=== PATIENT | male | born 1950 | race Caucasian/White ===

== ENCOUNTER 2022-05-27 03:21 | Inpatient (IN) | payer MEDICARE ==
[~2022-05-27] VITALS: Ht 162.6 cm; Wt 71.2 kg
--- NOTE | 2022-05-27 01:25 | NUR ---
RN NOTES RECEIVED DIRECT ADMISSION REPORT FROM [facility] KIEL CARMONA. ALL PERTINENT ADMISSION INFO REGARDING PT NOTED. WILL WAIT FOR PT TO BE TRANSFERRED TO UNIT AND ADDRESS NEEDS ACCORDINGLY. LINING FINISHER MADE AWARE.
--- NOTE | 2022-05-27 03:35 | NUR ---
RN NOTES RECEIVED PT FROM [facility] VIA [facility] ACCOMPANIED BY 2 EMT STAFF AND TRANSFERRED TO BED VIA 2 PERSON ASSIST. PT IS A/OX4; ON ROOM AIR WITH RESPIRATIONS EVEN AND UNLABORED. COMPREHENSIVE PHYSICAL ASSESSMENT AND PATIENT CARE DONE. CALL LIGHT WITHIN REACH, SAFETY MEASURES AND ISOLATION PRECAUTION IN PLACE, WILL CONTINUE MONITOR AND ASSESS THROUGHOUT THE SHIFT. WILL CARRY OUT MD ORDERS ACCORDINGLY. ACADEMIC INTERN MADE AWARE.
[2022-05-27 04:00] VITALS: BP 147/86
--- NOTE | 2022-05-27 06:05 | NUR ---
RN NOTES ACCU CHECK DONE : 152MG/DL; NOTIFIED ONCALL (JENNIFER,WINDING MACHINE OPERATOR) NO ISS ORDERED. ACKNOLWEDGED. SECURED ORDER FOR MILD ISS. WILL CARRY OUT ORDER. COKE CRUSHER OPERATOR MADE AWARE
[2022-05-27] MEDS: BLOOD SUGAR DIAGNOSTIC 1 EACH STRIP IN SCH ×6 (06:11→21:45)
[2022-05-27] MEDS ORDERED: DEXTROSE 50%-WATER 50 ML DISP.SYRIN IV PRN (06:30)
[2022-05-27 06:49] LABS: BASOPHILS % (AUTO) 0.4 % (0.0-2.0); EOSINOPHILS % (AUTO) 2.4 % (0.0-6.0); HEMATOCRIT 43 % (39-51); HEMOGLOBIN 14.7 g/dL (13.5-17.5); LYMPHOCYTES # (AUTO) 2.4 K/uL (0.8-4.8); LYMPHOCYTES % (AUTO) 25.5 % (20.0-44.0); MEAN CORPUSCULAR HGB CONC 34 g/dl (31.0-36.0); MEAN CORPUSCULAR VOLUME 89 fL (80-96); MONOCYTES # (AUTO) 0.9 K/uL (0.1-1.30); MONOCYTES % (AUTO) 9.8 % (2.0-12.0); NEUTROPHILS # (AUTO) 5.7 K/uL (1.8-8.9); NEUTROPHILS % (AUTO) 61.9 % (43.0-81.0); PLATELET COUNT (AUTO) 257 K/uL (150-450); RED BLOOD CELL COUNT(AUTO) 4.81 MIL/uL (4.5-6.0); WHITE BLOOD COUNT (AUTO) 9.2 K/uL (4.3-11.0)
--- NOTE | 2022-05-27 06:51 | NUR ---
RN CLOSING NOTE: PATIENT REMAINS IN ROOM IN NO SIGNS OF RESPIRATORY DISTRESS, PATIENT STILL ON ROOM AIR; TOLERATING WELL SATURATING @ >95% SP02. STILL WITH R SIDED WEAKNESS. WILL HAVE MRI TODAY; CHECK LIST SECURED AND PLACED IN THE CHART. SAFETY MEASURES IMPLEMENTED, BED IN LOWEST POSITION, LOCKED, SIDE RAILS UP, CALL LIGHT WITHIN REACH. ALL NEEDS AND ORDERS ADDRESSED DURING THE SHIFT. IV ACCESS MAINTAINED INTACT, SECURED AND FLUSHING WELL. PATIENT KEPT CLEAN AND COMFORTABLE WITHIN THE SHIFT. PATIENT ENDORSED TO INCOMING SHIFT RN WITH STABLE VITAL SIGN AND FOR CONTINUITY OF CARE.
[2022-05-27] MEDS: INSULIN REGULAR, HUMAN 100 UNIT/ML 3 ML VIAL SQ PRN ×5 (06:59→21:46)
--- NOTE | 2022-05-27 07:24 | NUR ---
RN OPENING NOTE: PATIENT IN ROOM IN NO SIGNS OF RESPIRATORY DISTRESS, PATIENT STILL ON ROOM AIR; TOLERATING WELL SATURATING @ >95% SP02. STILL WITH R SIDED WEAKNESS. WILL HAVE MRI TODAY; . SAFETY MEASURES IMPLEMENTED, BED IN LOWEST POSITION, LOCKED, SIDE RAILS UP, CALL LIGHT WITHIN REACH. ALL NEEDS AND ORDERS ADDRESSED DURING THE SHIFT. IV ACCESS MAINTAINED INTACT, SECURED AND FLUSHING WELL.
[2022-05-27 07:27] LABS: ALANINE AMINOTRANSFERASE 25 U/L (12-78); ALBUMIN 3.6 g/dL (3.4-5.0); ALKALINE PHOSPHATASE 68 U/L (46-116); ASPARTATE AMINOTRANSFERASE 18 U/L (15-37); BILIRUBIN,TOTAL 0.9 mg/dL (0.2-1.0); CALCIUM, SERUM 8.9 mg/dL (8.5-10.1); CARBON DIOXIDE 22 mmol/L (21-32); CHLORIDE 101 mmol/L (98-107); CREATININE 1.2 mg/dL (0.6-1.3); GLUCOSE 182 mg/dL (74-106); POTASSIUM 3.9 mmol/L (3.5-5.1); SODIUM SERUM 134 mmol/L (136-145); TOTAL PROTEIN, SERUM 7.4 g/dL (6.4-8.2); UREA NITROGEN, BLOOD 23 mg/dL (7-18)
[2022-05-27 07:32] LABS: CHOLESTEROL 84 mg/dL (<200); HDL CHOLESTEROL 38 mg/dL (40-60); LDL 38 mg/dL (0-99); THYROID STIMULATING HORMONE 1.477 uIU/mL (0.358-3.74); TRIGLYCERIDES 85 mg/dL (30-150)
[2022-05-27 08:00] VITALS: BP 178/84
[2022-05-27] MEDS: LOSARTAN POTASSIUM 50 MG TABLET PO SCH (08:03)
[2022-05-27] MEDS: PANTOPRAZOLE 40 MG TABLET.DR PO SCH (08:03)
[2022-05-27] MEDS: CLOPIDOGREL BISULFATE 75 MG TABLET PO SCH (08:03)
[2022-05-27] MEDS: ENOXAPARIN SODIUM 40 MG/0.4 ML DISP.SYRIN SQ SCH (08:04)
[2022-05-27] MEDS ORDERED: OMEP20CA15 PO (08:11)
[2022-05-27] MEDS ORDERED: TAMS-12 PO (08:11)
[2022-05-27] MEDS ORDERED: METF-441 PO (08:11)
[2022-05-27] MEDS ORDERED: LOSA100T31 PO (08:11)
--- NOTE | 2022-05-27 08:39 | NUR ---
RN NOTE PER ACCU CHECK PARAMETERS, PROVIDER IS TO BE NOTIFIED IF BLOOD SUGAR IS >150 MORNING BS WAS 172 INFORMED PROVIDER PATIENT HAS A SLIDING SCALE OF 3 UNITS OF INSULIN. INSULIN ADMINISTERED NO FURTHER ORDERS
[2022-05-27] MEDS ORDERED: METFORMIN XR 500 MG TAB.SR.24H PO SCH (09:00)
[2022-05-27] MEDS ORDERED: CLOPIDOGREL BISULFATE 75 MG TABLET PO SCH (09:00)
[2022-05-27 12:00] VITALS: BP 162/81
[2022-05-27 14:00] VITALS: BP 188/88
[2022-05-27 16:00] VITALS: BP 188/88
[2022-05-27] MEDS: METFORMIN 850 MG TABLET PO SCH (16:42)
[2022-05-27] MEDS: hydrALAZINE HCL IV 20 MG VIAL IV PRN (16:42)
--- NOTE | 2022-05-27 19:10 | NUR ---
RN CLOSING NOTE: PATIENT REMAINS IN ROOM IN NO SIGNS OF RESPIRATORY DISTRESS, PATIENT STILL ON ROOM AIR; TOLERATING WELL SATURATING @ >95% SP02. STILL WITH R SIDED WEAKNESS. WILL HAVE MRI TODAY; CHECK LIST SECURED AND PLACED IN THE CHART. SAFETY MEASURES IMPLEMENTED, BED IN LOWEST POSITION, LOCKED, SIDE RAILS UP, CALL LIGHT WITHIN REACH. ALL NEEDS AND ORDERS ADDRESSED DURING THE SHIFT. IV ACCESS MAINTAINED INTACT, SECURED AND FLUSHING WELL. PATIENT KEPT CLEAN AND COMFORTABLE WITHIN THE SHIFT. PATIENT ENDORSED TO INCOMING SHIFT RN.
--- NOTE | 2022-05-27 19:26 | NUR ---
RN NOTE RECEIVED MRI RESULTS INDICATION ACUTE KS INFORMED DR. DEWEY PER PROVIDER ORDER ASPIRIN 81MG PO ONCE A DAY, PLAVIX 75MG PO ONCE A DAY, ORDER CAROTID DUPLEX, ECHOCARDIOGRAM, AND PT EVAL ORDERS PLACED.
--- NOTE | 2022-05-27 19:34 | NUR ---
RN NOTES RECEIVED PT FOR CONTINUITY OF CARE. PATIENT A/OX4; SYRIAC SPEAKING IN NO S/SX OF ACUTE DISTRESS AT THIS TIME; CURRENTLY ON ROOM AIR; WITH 02 SAT >95% AT THIS TIME. AT BEDSIDE. WITH IV ACCESS PATENT, INTACT AND FLUSHING WELL. . STILL WITH NOTED RIGHT SIDED WEAKNESS, NO COMPLAINTS OF PAIN AND DISCOMFORT AT THIS TIME. CALL LIGHT WITHIN REACH OF THE PATIENT. WILL CONTINUE TO MONITOR AND REASSESS FOR ANY CHANGES AND WILL CARRY OUT ANY ONGOING AND ACTIVE MD ORDER.
[2022-05-27] MEDS: ATORVASTATIN 40 MG TABLET PO SCH (21:31)
[2022-05-27] MEDS: TAMSULOSIN 0.4 MG CAP.SR.24H PO SCH (21:31)
[2022-05-27] MEDS: LINAGLIPTIN 5 MG TABLET PO SCH (21:31)
[2022-05-27 22:00] VITALS: BP 163/81
[2022-05-27] MEDS ORDERED: SIMVASTATIN 40 MG TABLET PO SCH (22:00)
[2022-05-28] VITALS (7 sets, daily range): BP systolic 130–191; BP diastolic 68–85
--- NOTE | 2022-05-28 04:00 | NUR ---
RN NOTES PATIENT REMAINED TO BE IN NO SIGNS OF ACUTE RESPIRATORY DISTRESS , SAFE ENVIRONMENT MAINTAINED FOR PT. AM PATIENT CARE RENDERED. WILL CONTINUE TO MONITOR AND REASSESS FOR ANY CHANGES THROUGHOUT THE SHIFT.
[2022-05-28 06:38] LABS: BASOPHILS % (AUTO) 0.3 % (0.0-2.0); EOSINOPHILS % (AUTO) 1.7 % (0.0-6.0); HEMATOCRIT 42 % (39-51); HEMOGLOBIN 14.2 g/dL (13.5-17.5); LYMPHOCYTES # (AUTO) 2.1 K/uL (0.8-4.8); LYMPHOCYTES % (AUTO) 20.2 % (20.0-44.0); MEAN CORPUSCULAR HGB CONC 34 g/dl (31.0-36.0); MEAN CORPUSCULAR VOLUME 90 fL (80-96); MONOCYTES # (AUTO) 0.9 K/uL (0.1-1.30); NEUTROPHILS # (AUTO) 7.1 K/uL (1.8-8.9); NEUTROPHILS % (AUTO) 68.8 % (43.0-81.0); PLATELET COUNT (AUTO) 251 K/uL (150-450); RED BLOOD CELL COUNT(AUTO) 4.62 MIL/uL (4.5-6.0); WHITE BLOOD COUNT (AUTO) 10.3 K/uL (4.3-11.0)
--- NOTE | 2022-05-28 06:55 | NUR ---
RN CLOSING NOTE: PATIENT REMAINS IN ROOM IN NO SIGNS OF RESPIRATORY DISTRESS, PATIENT STILL ON ROOM AIR; TOLERATING WELL SATURATING @ >95% SP02. STILL WITH R SIDED WEAKNESS. SCHEDULED FOR ECHO AND CAROTID DUPLEX IMAGING TODAY. SAFETY MEASURES IMPLEMENTED, BED IN LOWEST POSITION, LOCKED, SIDE RAILS UP, CALL LIGHT WITHIN REACH. ALL NEEDS AND ORDERS ADDRESSED DURING THE SHIFT. IV ACCESS MAINTAINED INTACT, SECURED AND FLUSHING WELL. PATIENT KEPT CLEAN AND COMFORTABLE WITHIN THE SHIFT. PATIENT ENDORSED TO INCOMING SHIFT RN WITH STABLE VITAL SIGN AND FOR CONTINUITY OF CARE.
--- NOTE | 2022-05-28 07:00 | NUR ---
RN NOTE RECEIVED PATIENT IN BED RESTING ALERT ORIENTED X4 VERBALLY RESPONSIVE ON ROOM AIR O2:99% IV SITE IS ON LEFT AC INTACT PATENT RIGHT SIDE WEAKNESS,NEURO CHECK EVERY 4 HOURS,CONTIENT BOWEL/BLADDER,SAFETY MEASURE IMPLEMENT BED IN LOW POSITION AND LOCKED,CALL LIGHT WITHIN REACH,HEAD OF THE BED ELEVATED,CONTINUE TO MONITOR.
[2022-05-28 07:23] LABS: CALCIUM, SERUM 8.7 mg/dL (8.5-10.1); CREATININE 1.2 mg/dL (0.6-1.3); POTASSIUM 3.9 mmol/L (3.5-5.1)
[2022-05-28] MEDS: BLOOD SUGAR DIAGNOSTIC 1 EACH STRIP IN SCH ×4 (07:33→22:14)
[2022-05-28] MEDS: PANTOPRAZOLE 40 MG TABLET.DR PO SCH (07:40)
[2022-05-28] MEDS: INSULIN REGULAR, HUMAN 100 UNIT/ML 3 ML VIAL SQ PRN ×4 (07:54→22:16)
[2022-05-28] MEDS ORDERED: CLOPIDOGREL BISULFATE 75 MG TABLET PO SCH (09:00)
[2022-05-28] MEDS: METFORMIN 850 MG TABLET PO SCH ×2 (09:21→16:55)
[2022-05-28] MEDS: LINAGLIPTIN 5 MG TABLET PO SCH ×5 (09:21→22:43)
[2022-05-28] MEDS: ASPIRIN 81 MG TAB.CHEW PO SCH (09:21)
[2022-05-28] MEDS: CLOPIDOGREL BISULFATE 75 MG TABLET PO SCH (09:21)
[2022-05-28] MEDS: LOSARTAN POTASSIUM 50 MG TABLET PO SCH (09:22)
[2022-05-28] MEDS: ENOXAPARIN SODIUM 40 MG/0.4 ML DISP.SYRIN SQ SCH (09:23)
[2022-05-28] MEDS: HYDROCODONE/APAP 5/325MG TABLET PO PRN ×2 (14:55→22:18)
[2022-05-28] MEDS ORDERED: IOHEXOL-350 100 ML VIAL IV ONE (15:37)
[2022-05-28] MEDS ORDERED: IV NS 0.9% 250 ML IV ONE (15:37)
[2022-05-28] MEDS: PIPERACILLIN /TAZOBACTAM 3.375 G in IV D5W 100 ML IV SCH ×2 (15:48→21:26)
--- NOTE | 2022-05-28 16:30 | NUR ---
RN NOTE PATIENT CT A ON BRAIN DONE,CONTINUE TO MONITOR.
[2022-05-28] MEDS ORDERED: PIPERACILLIN /TAZOBACTAM 4.5 G in IV D5W 50 ML IV SCH (18:00)
--- NOTE | 2022-05-28 18:29 | NUR ---
RN NOTE PATIENT REMAINS ON ALERT ORIENTED X4 VERBALLY RESPONSIVE NO SOB NOT ACUTE DISTRESS NOTED,ALL DUE MEDS GIVEN MD ORDERED,ALL NEEDS MET KEPT CALL LIGHT WITHIN REACH ENDORSE NEXT COMING SHIFT FOR CONTINUATION OF CARE.
--- NOTE | 2022-05-28 19:15 | NUR ---
RN OPENING NOTE PATIENT IN BED, AWAKE. PATIENT'S FAMILY AT BEDSIDE. PATIENT IS ABLE TO MAKE NEEDS KNOWN. A/O X 4. PATIENT ON TELE MONITOR READING SR 61 BPM. R SIDED WEAKNESS NOTED. PATIENT HAS A LAC 20 G, SALINE LOCKED AT THIS TIME, FLUSHING WELL. SAFETY MEASURES IN PLACE: BED LOCKED AND IN LOWEST POSITION, CALL LIGHT WITHIN REACH, SIDE RAILS UP. WILL MONITOR PATIENT CLOSELY.
[2022-05-28] MEDS: TAMSULOSIN 0.4 MG CAP.SR.24H PO SCH (21:27)
[2022-05-28] MEDS: hydrALAZINE HCL IV 20 MG VIAL IV PRN (21:27)
[2022-05-28] MEDS: ATORVASTATIN 40 MG TABLET PO SCH (21:27)
--- NOTE | 2022-05-28 21:30 | NUR ---
RN NOTE PATIENT 'S BP 191/83, GIVEN APRESOLINE 20 MG IV. WILL MONITOR PATIENT'S BP
--- NOTE | 2022-05-28 22:20 | NUR ---
PATIENT COMPLAINED OF PAIN ON THE RIGHT SIDE OF HIS HEAD/TEMPORAL AREA. NORCO 5-325 GIVEN TO MANAGE THE PAIN. WILL REASSESS MED EFFECTIVENESS AT A LATER TIME.
--- NOTE | 2022-05-28 22:30 | NUR ---
BS 177 MG/DL, MD NOTIFIED PER ORDER. NO NEW ORDERS FROM MD. 3 UNITS REGULAR INSULIN GIVEN FOR COVERAGE.
[2022-05-29] VITALS: BP 135/72
[2022-05-29 04:00] VITALS: BP 157/74
[2022-05-29] MEDS: PIPERACILLIN /TAZOBACTAM 3.375 G in IV D5W 100 ML IV SCH ×2 (05:59→12:08)
--- NOTE | 2022-05-29 07:02 | NUR ---
RN CLOSING NOTE PATIENT IN BED, EYES CLOSED. PATIENT EASILY AWAKENED. NO CHANGES IN NEURO STATUS. PATIENT NOT IN ANY APPARENT DISTRESS. MANAGED BP AND PAIN APPROPRIATELY. ALL NEEDS MET AND ATTENDED. ALL ORDERS CARRIED OUT. SAFETY MEASURES IMPLEMENTED. WILL ENDORSE TO DAY SHIFT NURSE FOR JESSICA.
--- NOTE | 2022-05-29 07:30 | NUR ---
RN OPENING NOTE PT OBSERVED RESTING IN BED ON RA TOLERATING WELL WITH NO SIGNS OF LABORED BREATHING OR DISTRESS O2 SAT 97%. PT IS A/OX4 SPEAKS [place] AND [place] NEURO STATUS INTACT AT THIS TIME. PT IS ON BR AND USES URINAL. IV ACCESS L AC 20G. BED IS LOCKED IN LOWEST POSITION X2 BED RAILS UP AND ALL HOSPITAL SAFETY MEASURES WILL CONTINUE TO MONITOR.
[2022-05-29 08:00] VITALS: BP 163/77
[2022-05-29] MEDS: BLOOD SUGAR DIAGNOSTIC 1 EACH STRIP IN SCH ×2 (08:12→12:08)
[2022-05-29] MEDS: CLOPIDOGREL BISULFATE 75 MG TABLET PO SCH (08:17)
[2022-05-29] MEDS: LINAGLIPTIN 5 MG TABLET PO SCH ×2 (08:17→12:30)
[2022-05-29] MEDS: ASPIRIN 81 MG TAB.CHEW PO SCH (08:17)
[2022-05-29] MEDS: PANTOPRAZOLE 40 MG TABLET.DR PO SCH (08:18)
[2022-05-29] MEDS: ENOXAPARIN SODIUM 40 MG/0.4 ML DISP.SYRIN SQ SCH (08:34)
[2022-05-29] MEDS: INSULIN REGULAR, HUMAN 100 UNIT/ML 3 ML VIAL SQ PRN ×2 (08:49→12:24)
[2022-05-29] MEDS: METFORMIN 850 MG TABLET PO SCH ×2 (08:51→12:28)
--- NOTE | 2022-05-29 08:51 | NUR ---
RN NOTE: METFORMIN MORNING DOSE HELD DUE TO HAVING CTA WITH CONTRAST YESTERDAY.
[2022-05-29] MEDS: LOSARTAN POTASSIUM 50 MG TABLET PO SCH (09:00)
[2022-05-29 12:00] VITALS: BP 138/70
[2022-05-29] MEDS: HYDROCODONE/APAP 5/325MG TABLET PO PRN (12:28)
[2022-05-29] MEDS ORDERED: IOHEXOL-350 100 ML VIAL IV ONE (12:35)
[2022-05-29] MEDS ORDERED: IV NS 0.9% 250 ML IV ONE (12:35)
--- NOTE | 2022-05-29 16:32 | NUR ---
RN NOTE: REPORT CALLED NATHAN SEBASTIAN AND GAVE REPORT TO IKEL MARTINEZ. ENDORSED TO JUAN PT HAD HEAD CTA 05/28/22 AND CTA CAROTID TODAY 05/29/22. ALSO ENDORSED ACCUCHECK PARAMETERS AND PERMISSIVE HTN PARAMETERS DUE TO CVA.
--- NOTE | 2022-05-29 17:00 | NUR ---
RN NOTE: DISCHARGE PT DC'D TO [facility] IN STABLE CONDITION AT THIS TIME. DC INSTRUCTIONS GIVEN AND EXPLAINED TO PT, , AND AMBULANCE CREW. PT VERBALIZED UNDERSTANDING "I UNDERSTAND." ALL PAPERWORKS SIGNED AND COMPLETED. ALL BELONGINGS SENT WITH PT: PANTS AND CELLPHONE. L UA AC 20G INTACT, FLUSHED, AND PATENT. NO COMPLICATIONS NOTED. PT TO BE PLACED IN ROOM 4421/B; REPORT GIVEN TO KIEL MARTINEZ. RECEIVING DR IS DR. CHIRAG GUERRA. PT ENDORSED TO AMBULANCE CREW: IVON.
--- NOTE | 2022-05-30 12:30 | NUR ---
SS consult requested for CODE STROKE over the weekend. Pt. was already discharged.
== END 2022-05-29 17:41 | DRG 65 ==
LOC: TELE1 03:21
DX: I63.9 Cerebral infarction, unspecified (principal); D68.69 Other thrombophilia; I10 Essential (primary) hypertension; E78.5 Hyperlipidemia, unspecified; E11.9 Type 2 diabetes mellitus without complications; E66.9 Obesity, unspecified; N40.0 Benign prostatic hyperplasia without lower urinary tract symptoms; Z68.26 Body mass index [BMI] 26.0-26.9, adult; K11.20 Sialoadenitis, unspecified; Z86.73 Personal history of transient ischemic attack (TIA), and cerebral infarction without residual deficits; I67.2 Cerebral atherosclerosis
CPT/HCPCS: 36415; 70496-TC; 70498-TC; 70551-TC; 80048-TC; 80053-TC; 80061-TC; 82962-TC; 84443-TC; 85025-TC; 85652-TC; 85730-TC; 92526; 92611-TC; 93307-TC; 93880-TC; 97116-TC; 97530-TC; G0378; J0360; J1650; J1815; J2543; J7050; J7060; Q9967